=== PATIENT | male | born 1955 | race Caucasian/White ===

== ENCOUNTER 2021-09-23 05:04 | Day surgery (SDC) | payer BC, OTHER ==
[~2021-09-23 05:04] MED LIST: Sodium Chloride 0.9% 10 ML Syringe FLUSH SCH
[2021-09-23] MEDS ORDERED: Midazolam 1 MG/ML 2 ML SDV IV ONE ×6 (05:05→06:39)
[2021-09-23] MEDS ORDERED: fentaNYL 100 MCG/2 ML SDV IV ONE ×3 (05:05→06:28)
[2021-09-23] MEDS ORDERED: Dextrose 5%-0.45% NaCl 1,000 ML IV SCH (06:00)
[2021-09-23] MEDS ORDERED: Sodium Chloride 0.9% 10 ML Syringe FLUSH PRN (06:00)
[2021-09-23] MEDS ORDERED: Midazolam 1 MG/ML 2 ML SDV ONE (06:20)
[2021-09-23] MEDS ORDERED: fentaNYL 100 MCG/2 ML SDV ONE (06:21)
[2021-09-23 11:10] VITALS: BP 125/73
[2021-09-23 11:24] VITALS: PULSE 77
== END 2021-09-23 08:45 | disposition home or self-care (01) ==
LOC: DL.ENDO 05:04
PROVIDERS: ATTEND Internal Medicine Gastroenterology
DX: Z12.11 Encounter for screening for malignant neoplasm of colon (principal); D12.4 Benign neoplasm of descending colon; K64.8 Other hemorrhoids; K57.30 Diverticulosis of large intestine without perforation or abscess without bleeding; E66.09 Other obesity due to excess calories; I10 Essential (primary) hypertension; Z01.812 Encounter for preprocedural laboratory examination; Z20.822 Contact with and (suspected) exposure to COVID-19; Z86.010 Personal history of colon polyps; Z68.27 Body mass index [BMI] 27.0-27.9, adult
CPT/HCPCS: J2250; J3010; J7042; U0002